=== PATIENT | female | born 1990 | race American Indian/Alaskan Native ===

== ENCOUNTER 2017-04-06 16:38 | Emergency (ER) | payer SELFPAY ==
[2017-04-06 17:27] LABS: Basophils % (Auto) 0.4 % (0.0-1.8); Eosinophils # (Auto) 0.1 K/mm3 (0.0-0.4); Eosinophils % (Auto) 0.8 % (0.0-4.3); Hematocrit 40.1 % (30.3-42.9); Hemoglobin 13.1 gm/dl (10.1-14.3); Lymphocytes % (Auto) 23.1 % (13.4-35.0); Mean Corpuscular HGB Conc 33 % (30-34); Mean Corpuscular Hemoglobin 27 pg (28-32); Mean Corpuscular Volume 81 fl (79-97); Monocytes # (Auto) 0.7 K/mm3 (0.0-0.8); Monocytes % (Auto) 8.4 % (0.0-7.3); Platelet Count 272 K/mm3 (140-440); Red Blood Count 4.93 M/mm3 (3.65-5.03); Red Cell Distribution Width 16.2 % (13.2-15.2)
[2017-04-06 17:47] LABS: Albumin 4.2 g/dL (3.9-5); BUN/Creatinine Ratio 15; Blood Urea Nitrogen 9 mg/dL (7-17); Hemolysis Index 126
[2017-04-06 17:48] LABS: Alanine Aminotransferase 10 units/L (7-56)
[2017-04-06 22:42] LABS: Bacteria,Urine 1+ /HPF (Negative); Bilirubin,Urine NEG (Negative); Blood,Urine SM (Negative); Color,Urine Yellow (Yellow); Mucus,Urine 2+ /HPF; Nitrite,Urine NEG (Negative); Protein,Urine <15 mg/dL mg/dL (Negative)
[2017-04-06 23:21] LABS: HCG Qualitative,Urine Negative (Negative)
[2017-04-06 23:55] VITALS: BP 107/70
== END 2017-04-07 05:00 | disposition left against medical advice (07) ==
LOC: ED 16:38
DX: R10.9 Unspecified abdominal pain (principal); Z53.21 Procedure and treatment not carried out due to patient leaving prior to being seen by health care provider
CPT/HCPCS: 36415; 80053; 81001; 81025; 85025